=== PATIENT | male | born 1955 | race Caucasian/White ===

== ENCOUNTER 2018-03-08 05:12 | Day surgery (SDC) | payer MEDICARE ==
[~2018-03-08 05:12] MED LIST: BUSPIRONE5 MG PO; DICLOFENAC SODI75 MG PO; QUETIAPINE FUM300 MG PO
[2018-03-08 10:31] VITALS: BP 108/66
== END 2018-03-08 10:30 | disposition home or self-care (01) ==
LOC: ORM 05:12
PROVIDERS: ATTEND Surgery
PROC: 0YU60JZ Supplement Left Inguinal Region with Synthetic Substitute, Open Approach (ICD-10-PCS; principal; 2018-03-08)
DX: K40.90 Unilateral inguinal hernia, without obstruction or gangrene, not specified as recurrent (principal); M19.90 Unspecified osteoarthritis, unspecified site; F41.1 Generalized anxiety disorder
CPT/HCPCS: C9290

== ENCOUNTER 2018-08-16 19:24 | Inpatient (IN) | payer MEDICARE ==
[~2018-08-16] VITALS: Ht 177.8 cm; Wt 64.4 kg
[~2018-08-16 19:24] MED LIST changes: +BUSPIRONE15 MG PO; -BUSPIRONE5 MG PO; +QUETIAPINE FUM200 MG PO; -QUETIAPINE FUM300 MG PO
[2018-08-16 20:12] LABS: HEMATOCRIT 42.1 % (39.0-50.0); HEMOGLOBIN 14.4 g/dl (14.0-18.0); IMMATURE GRANULOCYTES 0.4 % (0.0-5.0); MEAN CELL VOLUME 98.1 fL CALC (80.0-100.0); MEAN CORPUSCULAR HGB 33.6 pG CALC (26.0-32.0); MEAN CORPUSCULAR HGB CONC 34.2 g/L CALC (32.0-36.0); NEUT# 7.23 thou/uL (1.82-7.42); RED BLOOD COUNT 4.29 mill/uL (4.70-6.10); RED CELL DISTRI WIDTH 12.7 % (11.5-15.5)
[2018-08-16 20:30] LABS: ALBUMIN 4.4 g/dL (3.2-5.0); ALKALINE PHOSPHATASE 95 u/l (38-126); ANION GAP 18 (6-22 (CALC)); BILIRUBIN, TOTAL 0.5 mg/dL (0.0-1.4); BUN 8 mg/dL (8-23); BUN/CREATININE RATIO 13 (12-20 (CALC)); CARBON DIOXIDE 22 mmol/l (22-30); CHLORIDE 101 mmol/l (95-108); CREATININE 0.6 mg/dL (0.7-1.3); GFR > 60 ML/MIN (>=60 (CALC)); GFR FOR AFR.AMER. > 60 ML/MIN (>=60 (CALC)); SGOT/AST 75 u/l (19-48); SODIUM 137 mmol/l (137-146); TOTAL PROTEIN 7.6 g/dL (6.3-8.2)
[2018-08-16 20:39] LABS: MYOGLOBIN 27 ng/mL (0 - 121)
[2018-08-16 22:30] LABS: URINE BILIRUBIN - DIPSTICK NEGATIVE (NEGATIVE); URINE BLOOD DIPSTICK MODERATE (NEGATIVE); URINE COLOR YELLOW; URINE GLUCOSE - DIPSTICK NEGATIVE (NEGATIVE); URINE KETONE NEGATIVE (NEGATIVE); URINE LEUK ESTERASE NEGATIVE (NEGATIVE); URINE NITRITE - DIPSTICK NEGATIVE (Negative); URINE PROTEIN - DIPSTICK TRACE mg/dL (NEG-TRACE); URINE UROBILINOGEN - DIPSTICK 0.2 E.U./dL (0.2)
[2018-08-16 22:33] LABS: BARBITURATES NEGATIVE (NEGATIVE); COCAINE NEGATIVE (NEGATIVE); METHADONE NEGATIVE (NEGATIVE); OXCYCODONE NEGATIVE (NEGATIVE); TETRAHYDROCANNABIONOL NEGATIVE (NEGATIVE); TRICYLIC ANTIDEPRESSANTS NEGATIVE (NEGATIVE)
[2018-08-16 22:34] LABS: URINE SQUAMOUS EPITHELIAL CELL FEW EPI/hpf (0-FEW); URINE WBC 0-2 WBC/hpf (0-5)
[2018-08-16 23:30] VITALS: BP 117/60
[2018-08-17 03:30] VITALS: BP 110/49
[2018-08-17 07:15] VITALS: BP 116/54
[2018-08-17] MEDS ORDERED: QUETIAPINE FUMA25 MG PO (10:12)
[2018-08-17] MEDS ORDERED: METHOCARBAMOL500 MG PO (10:13)
[2018-08-17 11:37] VITALS: BP 121/65
[2018-08-17 16:00] VITALS: BP 107/61
[2018-08-17 19:00] VITALS: BP 107/51
[2018-08-18 07:30] VITALS: BP 100/53
[2018-08-18 11:11] VITALS: BP 111/56
[2018-08-18 15:33] VITALS: BP 110/56
[2018-08-18 20:00] VITALS: BP 121/53
[2018-08-19] VITALS: BP 109/67
[2018-08-19 05:00] VITALS: BP 115/58
[2018-08-19 05:43] LABS: HEMATOCRIT 37.4 % (39.0-50.0); HEMOGLOBIN 12.5 g/dl (14.0-18.0); MEAN CELL VOLUME 100.3 fL CALC (80.0-100.0); MEAN CORPUSCULAR HGB 33.5 pG CALC (26.0-32.0); MEAN CORPUSCULAR HGB CONC 33.4 g/L CALC (32.0-36.0); NEUT# 14.37 thou/uL (1.82-7.42); RED BLOOD COUNT 3.73 mill/uL (4.70-6.10); RED CELL DISTRI WIDTH 12.8 % (11.5-15.5)
[2018-08-19 06:09] LABS: ALKALINE PHOSPHATASE 87 u/l (38-126); ANION GAP 11 (6-22 (CALC)); BILIRUBIN, TOTAL 0.2 mg/dL (0.0-1.4); BUN 19 mg/dL (8-23); BUN/CREATININE RATIO 32 (12-20 (CALC)); CARBON DIOXIDE 26 mmol/l (22-30); CHLORIDE 107 mmol/l (95-108); CREATININE 0.6 mg/dL (0.7-1.3); GFR > 60 ML/MIN (>=60 (CALC)); GFR FOR AFR.AMER. > 60 ML/MIN (>=60 (CALC)); MAGNESIUM 1.8 mg/dL (1.6-2.3); POTASSIUM 4.2 mmol/l (3.5-5.1); SGOT/AST 37 u/l (19-48); SODIUM 139 mmol/l (137-146)
[2018-08-19 06:19] LABS: TOTAL PROTEIN 5.9 g/dL (6.3-8.2)
[2018-08-19 07:30] VITALS: BP 111/56
[2018-08-19 12:15] VITALS: BP 113/66
[2018-08-19 15:35] VITALS: BP 121/70
[2018-08-19 19:04] VITALS: BP 129/58
[2018-08-20 04:06] VITALS: BP 126/72
[2018-08-20 04:10] VITALS: BP 88/48
[2018-08-20 04:40] VITALS: BP 86/46
[2018-08-20 05:04] LABS: HEMATOCRIT 36.1 % (39.0-50.0); MEAN CELL VOLUME 101.1 fL CALC (80.0-100.0); MEAN CORPUSCULAR HGB 33.6 pG CALC (26.0-32.0); MEAN CORPUSCULAR HGB CONC 33.2 g/L CALC (32.0-36.0); RED BLOOD COUNT 3.57 mill/uL (4.70-6.10); RED CELL DISTRI WIDTH 12.9 % (11.5-15.5)
[2018-08-20 10:21] VITALS: BP 133/53
[2018-08-20 15:55] VITALS: BP 136/78
[2018-08-20 19:19] VITALS: BP 126/67
[2018-08-21 04:31] VITALS: BP 134/65
[2018-08-21 09:56] VITALS: BP 109/58
[2018-08-21] MEDS ORDERED: DUONEB IN (11:28)
[2018-08-21] MEDS ORDERED: PREDNISONE10 MG PO (11:28)
[2018-08-21] MEDS ORDERED: VIBRAMYCIN100 M2 PO (11:28)
[2018-08-21] MEDS ORDERED: VENTOLIN H108 MCG/AC IN (11:30)
[2018-08-21] MEDS ORDERED: LIBRIUM25 M1 PO (11:30)
== END 2018-08-21 13:45 | disposition home or self-care (01) | DRG 190 ==
LOC: ED 19:24 → ED-I 21:16 → ED 22:52 → ICU 22:53 → MS2 08-19 12:05
PROVIDERS: Emergency Medicine; Internal Medicine; ADMIT Internal Medicine Nephrology; ATTEND Internal Medicine Nephrology
DX: J44.1 Chronic obstructive pulmonary disease with (acute) exacerbation (principal); J18.9 Pneumonia, unspecified organism; J44.0 Chronic obstructive pulmonary disease with (acute) lower respiratory infection; F17.210 Nicotine dependence, cigarettes, uncomplicated; M54.9 Dorsalgia, unspecified; G89.29 Other chronic pain; F41.9 Anxiety disorder, unspecified; F10.10 Alcohol abuse, uncomplicated; Z87.01 Personal history of pneumonia (recurrent)
CPT/HCPCS: J1650

== ENCOUNTER 2019-02-22 12:50 | Emergency (ER) | payer MEDICARE ==
[~2019-02-22] VITALS: Ht 177.8 cm; Wt 61.4 kg
[~2019-02-22 12:50] MED LIST changes: +DUONEB IN; +LIBRIUM25 M1 PO; +METHOCARBAMOL500 MG PO; +PREDNISONE10 MG PO; +QUETIAPINE FUMA25 MG PO; +VENTOLIN H108 MCG/AC IN; +VIBRAMYCIN100 M2 PO
[2019-02-22 15:26] VITALS: BP 128/77
== END 2019-02-22 15:42 | disposition home or self-care (01) ==
LOC: ED 12:50
DX: S50.311A Abrasion of right elbow, initial encounter (principal); F10.129 Alcohol abuse with intoxication, unspecified; M25.551 Pain in right hip; F17.200 Nicotine dependence, unspecified, uncomplicated; V13.4XXA Pedal cycle driver injured in collision with car, pick-up truck or van in traffic accident, initial encounter

== ENCOUNTER 2020-03-01 08:23 | Emergency (ER) | payer MEDICARE ==
[~2020-03-01] VITALS: Ht 177.8 cm; Wt 77.2 kg
[~2020-03-01 08:23] MED LIST changes: +BUSPIRONE10 MG PO; +EFFEXOR XR37.5 MG PO; +SERTRALINE50 MG PO
[2020-03-01 08:48] LABS: HEMATOCRIT 38.2 % (39.0-50.0); HEMOGLOBIN 12.6 g/dl (14.0-18.0); IMMATURE GRANULOCYTES 0.4 % (0.0-5.0); MEAN CELL VOLUME 102.4 fL CALC (80.0-100.0); MEAN CORPUSCULAR HGB 33.8 pG CALC (26.0-32.0); NEUT# 6.1 thou/uL (1.82-7.42); RED BLOOD COUNT 3.73 mill/uL (4.70-6.10); RED CELL DISTRI WIDTH 13.5 % (11.5-15.5)
[2020-03-01 09:01] LABS: ANION GAP 13 (6-22 (CALC)); BUN 9 mg/dL (8-23); BUN/CREATININE RATIO 15 (12-20 (CALC)); CARBON DIOXIDE 23 mmol/l (22-30); CHLORIDE 105 mmol/l (95-108); CREATININE 0.6 mg/dL (0.7-1.3); ETHYL ALCOHOL 0 mg/dl (0-30); GFR > 60 ML/MIN (>=60 (CALC)); GFR FOR AFR.AMER. > 60 ML/MIN (>=60 (CALC)); POTASSIUM 3.5 mmol/l (3.5-5.1); SODIUM 136 mmol/l (137-146)
[2020-03-01 09:03] LABS: ALBUMIN 4.3 g/dL (3.2-5.0); ALKALINE PHOSPHATASE 184 u/l (38-126); BILIRUBIN, TOTAL 0.9 mg/dL (0.0-1.4); SGOT/AST 302 u/l (19-48); TOTAL PROTEIN 7.1 g/dL (6.3-8.2)
[2020-03-01 10:55] LABS: URINE BILIRUBIN - DIPSTICK NEGATIVE (NEGATIVE); URINE BLOOD DIPSTICK TRACE-INTACT (NEGATIVE); URINE COLOR YELLOW; URINE GLUCOSE - DIPSTICK NEGATIVE (NEGATIVE); URINE KETONE TRACE mg/dL (NEGATIVE); URINE LEUK ESTERASE NEGATIVE (NEGATIVE); URINE NITRITE - DIPSTICK NEGATIVE (Negative); URINE PH 5.5 (4.5-8.0); URINE PROTEIN - DIPSTICK NEGATIVE (NEG-TRACE); URINE SPECIFIC GRAVITY 1.025; URINE UROBILINOGEN - DIPSTICK 0.2 E.U./dL (0.2)
[2020-03-01 13:24] VITALS: BP 149/96
[2020-04-27] MEDS ORDERED: BUSPIRONE15 MG PO (10:43)
[2020-04-27] MEDS ORDERED: QUETIAPINE FUMA25 MG PO (10:44)
[2020-04-27] MEDS ORDERED: QUETIAPINE FUM100 MG PO (10:44)
[2020-05-02] MEDS ORDERED: QUETIAPINE FUM100 MG PO (15:27)
[2020-05-02] MEDS ORDERED: VENLAFAXINE37.5 M1 PO (15:28)
== END 2020-03-01 13:10 | disposition home or self-care (01) ==
LOC: ED 08:23
PROVIDERS: Student in an Organized Health Care Education/Training Program
DX: F10.239 Alcohol dependence with withdrawal, unspecified (principal); F41.9 Anxiety disorder, unspecified; F32.9 Major depressive disorder, single episode, unspecified; M54.9 Dorsalgia, unspecified; G89.29 Other chronic pain; F17.200 Nicotine dependence, unspecified, uncomplicated; T43.206A Underdosing of unspecified antidepressants, initial encounter; T43.506A Underdosing of unspecified antipsychotics and neuroleptics, initial encounter; Z91.128 Patient's intentional underdosing of medication regimen for other reason
CPT/HCPCS: J2060

== ENCOUNTER 2020-07-29 16:36 | Emergency (ER) | payer MEDICARE ==
[~2020-07-29] VITALS: Ht 177.8 cm; Wt 80.0 kg
[~2020-07-29 16:36] MED LIST changes: +QUETIAPINE FUM100 MG PO; +VENLAFAXINE37.5 M1 PO
[2020-07-29 17:05] LABS: HEMATOCRIT 38.7 % (39.0-50.0); HEMOGLOBIN 12.7 g/dl (14.0-18.0); IMMATURE GRANULOCYTES 0.5 % (0.0-5.0); MEAN CELL VOLUME 101.6 fL CALC (80.0-100.0); MEAN CORPUSCULAR HGB 33.3 pG CALC (26.0-32.0); MEAN CORPUSCULAR HGB CONC 32.8 g/dL CAL (32.0-36.0); NEUT# 3.01 thou/uL (1.82-7.42); RED BLOOD COUNT 3.81 mill/uL (4.70-6.10); RED CELL DISTRI WIDTH 12.5 % (11.5-15.5)
[2020-07-29 17:24] LABS: ALBUMIN 4.1 g/dL (3.2-5.0); ANION GAP 14 (6-22 (CALC)); BUN 10 mg/dL (8-23); BUN/CREATININE RATIO 16 (12-20 (CALC)); CARBON DIOXIDE 26 mmol/l (22-30); CHLORIDE 103 mmol/l (95-108); CREATININE 0.6 mg/dL (0.7-1.3); ETHYL ALCOHOL 185 mg/dl (0-30); GFR > 60 ML/MIN (>=60 (CALC)); GFR FOR AFR.AMER. > 60 ML/MIN (>=60 (CALC)); POTASSIUM 3.6 mmol/l (3.5-5.1); SODIUM 139 mmol/l (137-146); TOTAL PROTEIN 7.3 g/dL (6.3-8.2)
[2020-07-29 17:25] LABS: ALKALINE PHOSPHATASE 91 u/l (38-126); BILIRUBIN, TOTAL 0.3 mg/dL (0.0-1.4); SGOT/AST 67 u/l (19-48)
[2020-07-29 17:27] LABS: PROTHROMBIN TIME 9.7 SECONDS (9.0-12.5)
[2020-07-29 19:04] LABS: URINE BILIRUBIN - DIPSTICK NEGATIVE (NEGATIVE); URINE BLOOD DIPSTICK TRACE-INTACT (NEGATIVE); URINE COLOR YELLOW; URINE GLUCOSE - DIPSTICK NEGATIVE (NEGATIVE); URINE KETONE NEGATIVE (NEGATIVE); URINE LEUK ESTERASE NEGATIVE (NEGATIVE); URINE NITRITE - DIPSTICK NEGATIVE (Negative); URINE PH 5.5 (4.5-8.0); URINE PROTEIN - DIPSTICK NEGATIVE (NEG-TRACE); URINE SPECIFIC GRAVITY >=1.030; URINE UROBILINOGEN - DIPSTICK 0.2 E.U./dL (0.2)
[2020-07-29 22:09] VITALS: BP 101/53
== END 2020-07-29 21:35 | disposition home or self-care (01) ==
LOC: ED 16:36
PROVIDERS: Student in an Organized Health Care Education/Training Program
DX: F10.129 Alcohol abuse with intoxication, unspecified (principal); F41.9 Anxiety disorder, unspecified; F17.200 Nicotine dependence, unspecified, uncomplicated

== ENCOUNTER 2020-08-09 02:11 | Emergency (ER) | payer MEDICARE ==
[~2020-08-09] VITALS: Ht 177.8 cm; Wt 90.0 kg
[2020-08-09] MEDS ORDERED: TORADOL PO (02:20)
[2020-08-09] MEDS ORDERED: DOXYCYCL HYC100 MG PO (02:20)
[2020-08-09 07:00] VITALS: BP 120/60
== END 2020-08-09 07:00 | disposition home or self-care (01) ==
LOC: ED 02:11
DX: S61.251A Open bite of left index finger without damage to nail, initial encounter (principal); L03.012 Cellulitis of left finger; F41.9 Anxiety disorder, unspecified; F17.200 Nicotine dependence, unspecified, uncomplicated; W55.01XA Bitten by cat, initial encounter; Y92.009 Unspecified place in unspecified non-institutional (private) residence as the place of occurrence of the external cause

== ENCOUNTER 2021-01-04 18:07 | Emergency (ER) | payer MEDICARE ==
[~2021-01-04] VITALS: Ht 177.8 cm; Wt 75.0 kg
[~2021-01-04 18:07] MED LIST changes: +DOXYCYCL HYC100 MG PO; +TORADOL PO
[2021-01-04 18:19] LABS: HEMATOCRIT 36.6 % (39.0-50.0); HEMOGLOBIN 12.5 g/dl (14.0-18.0); IMMATURE GRANULOCYTES 0.2 % (0.0-5.0); MEAN CORPUSCULAR HGB 35.5 pG CALC (26.0-32.0); MEAN CORPUSCULAR HGB CONC 34.2 g/dL CAL (32.0-36.0); NEUT# 2.32 thou/uL (1.82-7.42); RED BLOOD COUNT 3.52 mill/uL (4.70-6.10); RED CELL DISTRI WIDTH 12.9 % (11.5-15.5)
[2021-01-04 18:32] LABS: ALBUMIN 4.5 g/dL (3.2-5.0); ALKALINE PHOSPHATASE 132 u/l (38-126); ANION GAP 16 (6-22 (CALC)); BUN 7 mg/dL (8-23); BUN/CREATININE RATIO 12 (12-20 (CALC)); CARBON DIOXIDE 27 mmol/l (22-30); CHLORIDE 95 mmol/l (95-108); CREATININE 0.6 mg/dL (0.7-1.3); ETHYL ALCOHOL 230 mg/dl (0-30); GFR > 60 ML/MIN (>=60 (CALC)); GFR FOR AFR.AMER. > 60 ML/MIN (>=60 (CALC)); POTASSIUM 4.1 mmol/l (3.5-5.1); SODIUM 134 mmol/l (137-146); TOTAL PROTEIN 8.2 g/dL (6.3-8.2)
[2021-01-04 18:33] LABS: BILIRUBIN, TOTAL 0.8 mg/dL (0.0-1.4); SGOT/AST 315 u/l (19-48)
[2021-01-05 03:22] LABS: URINE BILIRUBIN - DIPSTICK NEGATIVE (NEGATIVE); URINE BLOOD DIPSTICK NEGATIVE (NEGATIVE); URINE COLOR YELLOW; URINE GLUCOSE - DIPSTICK NEGATIVE (NEGATIVE); URINE KETONE NEGATIVE (NEGATIVE); URINE LEUK ESTERASE NEGATIVE (NEGATIVE); URINE PH 5.5 (4.5-8.0); URINE PROTEIN - DIPSTICK NEGATIVE (NEG-TRACE); URINE SPECIFIC GRAVITY 1.015; URINE UROBILINOGEN - DIPSTICK 0.2 E.U./dL (0.2)
[2021-01-05 03:24] LABS: URINE NITRITE - DIPSTICK NEGATIVE (Negative)
[2021-01-05] MEDS ORDERED: TORADOL PO (03:50)
[2021-01-05 05:34] VITALS: BP 141/68
== END 2021-01-05 05:52 | disposition home or self-care (01) ==
LOC: ED 18:07
PROVIDERS: Family Medicine
DX: S22.011A Stable burst fracture of first thoracic vertebra, initial encounter for closed fracture (principal); S42.032A Displaced fracture of lateral end of left clavicle, initial encounter for closed fracture; S80.212A Abrasion, left knee, initial encounter; S40.212A Abrasion of left shoulder, initial encounter; F41.9 Anxiety disorder, unspecified; F17.200 Nicotine dependence, unspecified, uncomplicated; F10.129 Alcohol abuse with intoxication, unspecified; V18.0XXA Pedal cycle driver injured in noncollision transport accident in nontraffic accident, initial encounter; Y92.410 Unspecified street and highway as the place of occurrence of the external cause; Y93.55 Activity, bike riding

== ENCOUNTER 2021-04-30 14:48 | Emergency (ER) | payer MEDICARE ==
[~2021-04-30] VITALS: Ht 177.8 cm; Wt 63.0 kg
[2021-04-30] MEDS ORDERED: IBUPROFEN600 MG PO (16:55)
[2021-04-30] MEDS ORDERED: FLEXERIL5 M1 PO (16:55)
[2021-04-30] MEDS ORDERED: VOLTAREN1%GEL TOP (16:55)
[2021-04-30 17:25] VITALS: BP 124/75
== END 2021-04-30 17:30 | disposition home or self-care (01) ==
LOC: ED 14:48
DX: M54.5 Low back pain (principal); G89.29 Other chronic pain; F32.9 Major depressive disorder, single episode, unspecified; F41.9 Anxiety disorder, unspecified; F17.210 Nicotine dependence, cigarettes, uncomplicated

== ENCOUNTER 2022-08-07 16:31 | Emergency (ER) | payer MEDICARE ==
[~2022-08-07] VITALS: Ht 177.8 cm; Wt 63.6 kg
[2022-08-07] VITALS (15 sets, daily range): BP systolic 115–135; BP diastolic 70–86
[~2022-08-07 16:31] MED LIST changes: +FLEXERIL5 M1 PO; +IBUPROFEN600 MG PO; +IPRATROPIU0.5 MG/3 M NEB; +NICODERM C21 MG/242 TD; +SEROQUEL100 MG PO; +VOLTAREN1%GEL TOP
[2022-08-07 17:16] LABS: HEMATOCRIT 37.7 % (39.0-50.0); HEMOGLOBIN 12.7 g/dl (14.0-18.0); IMMATURE GRANULOCYTES 0.2 % (0.0-5.0); MEAN CELL VOLUME 103.3 fL CALC (80.0-100.0); MEAN CORPUSCULAR HGB 34.8 pG CALC (26.0-32.0); MEAN CORPUSCULAR HGB CONC 33.7 g/dL CAL (32.0-36.0); NEUT# 3.83 thou/uL (1.82-7.42); RED BLOOD COUNT 3.65 mill/uL (4.70-6.10); RED CELL DISTRI WIDTH 13.3 % (11.5-15.5)
[2022-08-07 17:27] LABS: ALBUMIN 4.1 g/dL (3.2-5.0); ALKALINE PHOSPHATASE 79 u/l (38-126); BUN 5 mg/dL (8-23); BUN/CREATININE RATIO 9 (12-20 (CALC)); CHLORIDE 99 mmol/l (95-108); CREATININE 0.5 mg/dL (0.7-1.3); GFR FOR AFR.AMER. > 60 ML/MIN (>=60 (CALC)); GFR OTHER RACES > 60 ML/MIN (>=60 (CALC)); POTASSIUM 3.7 mmol/l (3.5-5.1); SGOT/AST 52 u/l (19-48); SODIUM 136 mmol/l (137-146); TOTAL PROTEIN 7.7 g/dL (6.3-8.2)
[2022-08-07 17:28] LABS: ANION GAP 9 (6-22 (CALC)); BILIRUBIN, TOTAL 0.4 mg/dL (0.0-1.4); CARBON DIOXIDE 32 mmol/l (22-30)
[2022-08-07 19:16] LABS: URINE BILIRUBIN - DIPSTICK NEGATIVE (NEGATIVE); URINE BLOOD DIPSTICK NEGATIVE (NEGATIVE); URINE COLOR YELLOW; URINE GLUCOSE - DIPSTICK 500 mg/dL (NEGATIVE); URINE KETONE NEGATIVE (NEGATIVE); URINE LEUK ESTERASE NEGATIVE (NEGATIVE); URINE PROTEIN - DIPSTICK NEGATIVE (NEG-TRACE); URINE SPECIFIC GRAVITY <=1.005; URINE UROBILINOGEN - DIPSTICK 0.2 E.U./dL (0.2)
[2022-08-07 19:17] LABS: URINE NITRITE - DIPSTICK NEGATIVE (Negative)
[2022-08-07] MEDS ORDERED: MECLIZINE25 MG PO (20:45)
== END 2022-08-07 21:55 | disposition home or self-care (01) ==
LOC: ED 16:31
PROVIDERS: Family Medicine
DX: R42 Dizziness and giddiness (principal); F41.9 Anxiety disorder, unspecified

== ENCOUNTER 2022-12-28 20:03 | Emergency (ER) | payer MEDICARE ==
[2022-12-28] VITALS (10 sets, daily range): BP systolic 104–131; BP diastolic 49–79
[~2022-12-28] VITALS: Ht 177.8 cm; Wt 70.0 kg
[~2022-12-28 20:03] MED LIST changes: +MECLIZINE25 MG PO
[2022-12-28 20:50] LABS: BASO% 1.4 % (0-3); EOS% 1.2 % (0-8); HEMATOCRIT 35.2 % (39.0-50.0); HEMOGLOBIN 11.8 g/dl (14.0-18.0); IMMATURE GRANULOCYTES 0.2 % (0.0-5.0); LYMPH% 30.9 % (15-41); MEAN CORPUSCULAR HGB 35.9 pG CALC (26.0-32.0); MEAN CORPUSCULAR HGB CONC 33.5 g/dL CAL (32.0-36.0); MONO% 14.9 % (2-13); NEUT# 2.21 thou/uL (1.82-7.42); NEUT% 51.4 % (42-76); RED BLOOD COUNT 3.29 mill/uL (4.70-6.10)
[2022-12-28 21:01] LABS: ALBUMIN 4.3 g/dL (3.2-5.0); ALKALINE PHOSPHATASE 100 u/l (38-126); BUN 3 mg/dL (8-23); BUN/CREATININE RATIO 6 (12-20 (CALC)); CHLORIDE 97 mmol/l (95-108); CREATININE 0.5 mg/dL (0.7-1.3); GFR FOR AFR.AMER. > 60 ML/MIN (>=60 (CALC)); GFR OTHER RACES > 60 ML/MIN (>=60 (CALC)); POTASSIUM 3.8 mmol/l (3.5-5.1); SODIUM 131 mmol/l (137-146); TOTAL PROTEIN 7.3 g/dL (6.3-8.2)
[2022-12-28 21:02] LABS: ANION GAP 14 (6-22 (CALC)); BILIRUBIN, TOTAL 0.9 mg/dL (0.2-1.3); CARBON DIOXIDE 24 mmol/l (22-30); SGOT/AST 143 u/l (19-48)
[2022-12-28 21:35] LABS: CPK 105 u/l (55-170); ETHYL ALCOHOL 146 mg/dl (0-30)
[2022-12-28 22:47] LABS: URINE BILIRUBIN - DIPSTICK NEGATIVE (NEGATIVE); URINE BLOOD DIPSTICK NEGATIVE (NEGATIVE); URINE COLOR YELLOW; URINE GLUCOSE - DIPSTICK NEGATIVE (NEGATIVE); URINE KETONE NEGATIVE (NEGATIVE); URINE LEUK ESTERASE NEGATIVE (NEGATIVE); URINE PROTEIN - DIPSTICK NEGATIVE (NEG-TRACE); URINE SPECIFIC GRAVITY <=1.005; URINE UROBILINOGEN - DIPSTICK 0.2 E.U./dL (0.2)
[2022-12-28 22:56] LABS: URINE NITRITE - DIPSTICK NEGATIVE (Negative)
== END 2022-12-28 22:44 | disposition home or self-care (01) ==
LOC: ED 20:03
PROVIDERS: Emergency Medicine
DX: E86.0 Dehydration (principal); F10.10 Alcohol abuse, uncomplicated; K70.10 Alcoholic hepatitis without ascites; J44.9 Chronic obstructive pulmonary disease, unspecified; F41.9 Anxiety disorder, unspecified; F17.200 Nicotine dependence, unspecified, uncomplicated; Y90.6 Blood alcohol level of 120-199 mg/100 ml; Z20.822 Contact with and (suspected) exposure to COVID-19

== ENCOUNTER 2023-08-14 13:44 | Inpatient (IN) | payer MEDICARE ==
[~2023-08-14] VITALS: Ht 177.8 cm; Wt 64.0 kg
[2023-08-14] VITALS (10 sets, daily range): BP systolic 125–150; BP diastolic 65–92
[2023-08-14 15:00] LABS: BASO% 0.8 % (0-3); EOS% 0.5 % (0-8); HEMATOCRIT 30.4 % (39.0-50.0); HEMOGLOBIN 10.3 g/dl (14.0-18.0); IMMATURE GRANULOCYTES 0.1 % (0.0-5.0); LYMPH% 10.4 % (15-41); MEAN CELL VOLUME 105.6 fL CALC (80.0-100.0); MEAN CORPUSCULAR HGB 35.8 pG CALC (26.0-32.0); MEAN CORPUSCULAR HGB CONC 33.9 g/dL CAL (32.0-36.0); MONO% 8.1 % (2-13); NEUT# 6.39 thou/uL (1.82-7.42); NEUT% 80.1 % (42-76); RED BLOOD COUNT 2.88 mill/uL (4.70-6.10); RED CELL DISTRI WIDTH 11.8 % (11.5-15.5)
[2023-08-14 15:16] LABS: ALBUMIN 3.5 g/dL (3.2-5.0); ALKALINE PHOSPHATASE 94 u/l (38-126); ANION GAP 12 (6-22 (CALC)); BUN 17 mg/dL (8-23); BUN/CREATININE RATIO 31 (12-20 (CALC)); CARBON DIOXIDE 24 mmol/l (22-30); CHLORIDE 97 mmol/l (95-108); CREATININE 0.5 mg/dL (0.7-1.3); GFR FOR AFR.AMER. > 60 ML/MIN (>=60 (CALC)); GFR OTHER RACES > 60 ML/MIN (>=60 (CALC)); POTASSIUM 4.2 mmol/l (3.5-5.1); SGOT/AST 45 u/l (19-48); SODIUM 129 mmol/l (137-146); TOTAL PROTEIN 6.4 g/dL (6.3-8.2)
[2023-08-14 15:21] LABS: BILIRUBIN, TOTAL 0.5 mg/dL (0.2-1.3)
[2023-08-14] MEDS ORDERED: CLONAZEPAM0.5 M1 PO (17:50)
[2023-08-15] VITALS (13 sets, daily range): BP systolic 83–138; BP diastolic 52–77
[2023-08-15 06:29] LABS: EOS% 1.9 % (0-8); HEMATOCRIT 29.9 % (39.0-50.0); IMMATURE GRANULOCYTES 0.3 % (0.0-5.0); LYMPH% 16.5 % (15-41); MEAN CELL VOLUME 105.3 fL CALC (80.0-100.0); MEAN CORPUSCULAR HGB 35.2 pG CALC (26.0-32.0); MEAN CORPUSCULAR HGB CONC 33.4 g/dL CAL (32.0-36.0); MONO% 11.5 % (2-13); NEUT# 3.99 thou/uL (1.82-7.42); NEUT% 68.8 % (42-76); RED BLOOD COUNT 2.84 mill/uL (4.70-6.10); RED CELL DISTRI WIDTH 11.8 % (11.5-15.5)
[2023-08-15 06:36] LABS: ALBUMIN 3.2 g/dL (3.2-5.0); ALKALINE PHOSPHATASE 95 u/l (38-126); ANION GAP 11 (6-22 (CALC)); BILIRUBIN, TOTAL 0.5 mg/dL (0.2-1.3); BUN 8 mg/dL (8-23); BUN/CREATININE RATIO 20 (12-20 (CALC)); CARBON DIOXIDE 23 mmol/l (22-30); CHLORIDE 105 mmol/l (95-108); CREATININE 0.4 mg/dL (0.7-1.3); GFR FOR AFR.AMER. > 60 ML/MIN (>=60 (CALC)); GFR OTHER RACES > 60 ML/MIN (>=60 (CALC)); MAGNESIUM 1.7 mg/dL (1.6-2.3); SGOT/AST 45 u/l (19-48); SODIUM 135 mmol/l (137-146); TOTAL PROTEIN 5.9 g/dL (6.3-8.2)
[2023-08-15 12:10] LABS: BASO% 0.8 % (0-3); HEMATOCRIT 30.2 % (39.0-50.0); HEMOGLOBIN 9.9 g/dl (14.0-18.0); IMMATURE GRANULOCYTES 0.2 % (0.0-5.0); LYMPH% 17.8 % (15-41); MEAN CELL VOLUME 107.1 fL CALC (80.0-100.0); MEAN CORPUSCULAR HGB 35.1 pG CALC (26.0-32.0); MEAN CORPUSCULAR HGB CONC 32.8 g/dL CAL (32.0-36.0); MONO% 11.7 % (2-13); NEUT# 4.23 thou/uL (1.82-7.42); NEUT% 68.5 % (42-76); RED BLOOD COUNT 2.82 mill/uL (4.70-6.10); RED CELL DISTRI WIDTH 11.8 % (11.5-15.5)
[2023-08-16] VITALS (7 sets, daily range): BP systolic 114–139; BP diastolic 58–86
[2023-08-16 05:24] LABS: HEMATOCRIT 28.3 % (39.0-50.0); HEMOGLOBIN 9.5 g/dl (14.0-18.0); MEAN CELL VOLUME 107.6 fL CALC (80.0-100.0); MEAN CORPUSCULAR HGB 36.1 pG CALC (26.0-32.0); MEAN CORPUSCULAR HGB CONC 33.6 g/dL CAL (32.0-36.0); RED BLOOD COUNT 2.63 mill/uL (4.70-6.10); RED CELL DISTRI WIDTH 11.9 % (11.5-15.5)
[2023-08-16 05:40] LABS: ALBUMIN 2.9 g/dL (3.2-5.0); ALKALINE PHOSPHATASE 112 u/l (38-126); ANION GAP 6 (6-22 (CALC)); BILIRUBIN, TOTAL 0.2 mg/dL (0.2-1.3); BUN 5 mg/dL (8-23); BUN/CREATININE RATIO 10 (12-20 (CALC)); CARBON DIOXIDE 25 mmol/l (22-30); CHLORIDE 106 mmol/l (95-108); CREATININE 0.5 mg/dL (0.7-1.3); GFR FOR AFR.AMER. > 60 ML/MIN (>=60 (CALC)); GFR OTHER RACES > 60 ML/MIN (>=60 (CALC)); MAGNESIUM 1.7 mg/dL (1.6-2.3); POTASSIUM 3.4 mmol/l (3.5-5.1); SGOT/AST 39 u/l (19-48); SODIUM 134 mmol/l (137-146); TOTAL PROTEIN 5.5 g/dL (6.3-8.2)
[2023-08-17 00:31] VITALS: BP 120/72
[2023-08-17 05:37] VITALS: BP 117/79
[2023-08-17 06:01] LABS: HEMATOCRIT 26.9 % (39.0-50.0); MEAN CORPUSCULAR HGB 36.1 pG CALC (26.0-32.0); MEAN CORPUSCULAR HGB CONC 33.5 g/dL CAL (32.0-36.0); RED BLOOD COUNT 2.49 mill/uL (4.70-6.10)
[2023-08-17 06:35] LABS: ALBUMIN 2.9 g/dL (3.2-5.0); ALKALINE PHOSPHATASE 114 u/l (38-126); ANION GAP 11 (6-22 (CALC)); BILIRUBIN, TOTAL 0.2 mg/dL (0.2-1.3); BUN 5 mg/dL (8-23); BUN/CREATININE RATIO 11 (12-20 (CALC)); CARBON DIOXIDE 23 mmol/l (22-30); CHLORIDE 105 mmol/l (95-108); CREATININE 0.5 mg/dL (0.7-1.3); GFR FOR AFR.AMER. > 60 ML/MIN (>=60 (CALC)); GFR OTHER RACES > 60 ML/MIN (>=60 (CALC)); MAGNESIUM 1.5 mg/dL (1.6-2.3); POTASSIUM 3.7 mmol/l (3.5-5.1); SGOT/AST 52 u/l (19-48); SODIUM 135 mmol/l (137-146); TOTAL PROTEIN 5.5 g/dL (6.3-8.2)
[2023-08-17 07:57] VITALS: BP 144/87
[2023-08-17 08:26] VITALS: BP 144/87
[2023-08-17 11:18] VITALS: BP 129/78
[2023-08-17] MEDS ORDERED: MECLIZINE 2525 MG PO (11:18)
[2023-08-17 11:51] VITALS: BP 129/78
== END 2023-08-17 12:37 | disposition home or self-care (01) | DRG 312 ==
LOC: ED 13:44 → ED-I 16:30 → ED 17:08 → MS2 17:09
PROVIDERS: Family Medicine; ADMIT Student in an Organized Health Care Education/Training Program; ATTEND Student in an Organized Health Care Education/Training Program
DX: I95.1 Orthostatic hypotension (principal); G62.1 Alcoholic polyneuropathy; D53.9 Nutritional anemia, unspecified; F10.10 Alcohol abuse, uncomplicated; J44.9 Chronic obstructive pulmonary disease, unspecified; F41.9 Anxiety disorder, unspecified; K21.9 Gastro-esophageal reflux disease without esophagitis; M54.9 Dorsalgia, unspecified; G89.29 Other chronic pain; F17.210 Nicotine dependence, cigarettes, uncomplicated; Z91.81 History of falling
CPT/HCPCS: A9579; J1650; J3475; S0164

== ENCOUNTER 2023-08-26 17:56 | Emergency (ER) | payer MEDICARE ==
[~2023-08-26] VITALS: Ht 177.8 cm; Wt 64.0 kg
[2023-08-26] VITALS (10 sets, daily range): BP systolic 117–141; BP diastolic 58–80
[~2023-08-26 17:56] MED LIST changes: +CLONAZEPAM0.5 M1 PO; +MECLIZINE 2525 MG PO
[2023-08-26 18:31] LABS: BASO% 0.5 % (0-3); EOS% 0.1 % (0-8); HEMOGLOBIN 11.9 g/dl (14.0-18.0); IMMATURE GRANULOCYTES 0.2 % (0.0-5.0); LYMPH% 5.5 % (15-41); MEAN CELL VOLUME 107.8 fL CALC (80.0-100.0); MEAN CORPUSCULAR HGB 35.6 pG CALC (26.0-32.0); MEAN CORPUSCULAR HGB CONC 33.1 g/dL CAL (32.0-36.0); MONO% 5.2 % (2-13); NEUT# 11.76 thou/uL (1.82-7.42); NEUT% 88.5 % (42-76); RED BLOOD COUNT 3.34 mill/uL (4.70-6.10); RED CELL DISTRI WIDTH 12.6 % (11.5-15.5)
[2023-08-26 18:46] LABS: ALBUMIN 4.2 g/dL (3.2-5.0); ALKALINE PHOSPHATASE 89 u/l (38-126); ANION GAP 19 (6-22 (CALC)); BILIRUBIN, TOTAL 0.5 mg/dL (0.2-1.3); BUN 22 mg/dL (8-23); BUN/CREATININE RATIO 36 (12-20 (CALC)); CARBON DIOXIDE 23 mmol/l (22-30); CHLORIDE 96 mmol/l (95-108); CREATININE 0.6 mg/dL (0.7-1.3); GFR FOR AFR.AMER. > 60 ML/MIN (>=60 (CALC)); GFR OTHER RACES > 60 ML/MIN (>=60 (CALC)); POTASSIUM 4.9 mmol/l (3.5-5.1); SGOT/AST 43 u/l (19-48); SODIUM 133 mmol/l (137-146); TOTAL PROTEIN 7.3 g/dL (6.3-8.2)
[2023-08-26] MEDS ORDERED: VOLTAREN - GENE75 MG PO (20:38)
[2023-08-26] MEDS ORDERED: TRAMADOL HCL50 MG PO (20:38)
[2023-08-26] MEDS ORDERED: PEPCID20 MG PO (20:43)
== END 2023-08-26 21:26 | disposition home or self-care (01) ==
LOC: ED 17:56
PROVIDERS: Family Medicine
DX: S29.012A Strain of muscle and tendon of back wall of thorax, initial encounter (principal); S39.012A Strain of muscle, fascia and tendon of lower back, initial encounter; J44.9 Chronic obstructive pulmonary disease, unspecified; F17.200 Nicotine dependence, unspecified, uncomplicated; V18.0XXA Pedal cycle driver injured in noncollision transport accident in nontraffic accident, initial encounter
CPT/HCPCS: S0164